=== PATIENT | female | born 1950 | race Caucasian/White ===

== ENCOUNTER 2019-02-05 21:08 | Emergency (ER) | payer MEDICARE ==
[2019-02-05 22:07] LABS: ABS Basophils 0.1 10^3/ul (0-0.2); ABS Eosinophils 0.3 10^3/ul (0-0.6); ABS Lymphocytes 0.9 10^3/ul (1.0-4.8); ABS Monocytes 0.5 10^3/ul (0-0.8); ABS Neutrophils 6.1 10^3/ul (1.5-7.7); Eosinophil % 3.7 %; Hematocrit 44 % (35-47); Hemoglobin 14.3 g/dL (12.0-16.0); Mean Corpuscular HGB Conc 33 g/dL (31-36); Mean Corpuscular Hemoglobin 29 pg (27-31); Mean Corpuscular Volume 89 fL (80-97); Mean Platelet Volume 6.8 fL (7.4-10.4); Nucleated Red Blood Cells % 0.1; Platelet Count 252 10^3/uL (150-450); Red Blood Count 4.91 10^6 /uL (3.70-4.87); Red Cell Distribution Width 15 % (10.5-15); White Blood Count 7.8 10^3/uL (3.5-10.8)
[2019-02-05 22:24] LABS: Albumin 3.9 g/dL (3.2-5.2); Albumin/Globulin Ratio 1.2 (1-3); BUN/Creatinine Ratio 21.8 (8-20); C Reactive Protein 9.4 mg/L (<8.01); Calcium 9.1 mg/dL (8.6-10.3); EGFR African American 59.4 (>60); EGFR Non-African American 49.1 (>60); Globulin 3.2 g/dL (2-4); Potassium 4.5 mmol/L (3.5-5.0); Total Bilirubin 0.5 mg/dL (0.2-1.0); Total Protein 7.1 g/dL (6.4-8.9)
[2019-02-05 23:24] VITALS: BP 142/84
--- NOTE | 2019-02-05 23:51 | ED ---
Abdominal Pain/Female - HPI Summary HPI Summary: This patient is a 68 year old female presenting to [facility] with a chief complaint of abdominal pain since 10 hours ago. She states she then started experiencing diarrhea and after a while she noticed a small amount of blood in the toilet after her diarrhea had resolved. The patient reports nausea, vomiting, and chills. She describes the pain as a cramping pain and rates it 7/10 in severity. - History of Current Complaint Chief Complaint: EDAbdPain Stated Complaint: DIARRHEA/BLOOD IN STOOL PER PT Time Seen by Provider: 02/05/19 23:48 Hx Obtained From: Patient Pain Intensity: 6 Pain Scale Used: 0-10 Numeric Allergies/Adverse Reactions: Allergies Allergy/AdvReac Type Severity Reaction Status Date / Time neomycin Allergy Unknown Verified 02/05/19 21:21 Reaction Details Penicillins Allergy Unknown Verified 02/05/19 21:21 Reaction Details Sulfa (Sulfonamide Allergy Unknown Verified 02/05/19 21:20 Antibiotics) Reaction Details diovan Allergy Unknown Uncoded 02/05/19 21:21 Reaction Details Home Medications: Home Medications Levothyroxine TAB* [Synthroid TAB*] 150 mcg PO DAILY 02/06/19 [History Confirmed 02/06/19] Sertraline* [Zoloft*] 50 mg PO BEDTIME 02/06/19 [History Confirmed 02/06/19] PMH/Surg Hx/FS Hx/Imm Hx Endocrine/Hematology History: Denies: Hx Anemia Cardiovascular History: Denies: Hx Coronary Artery Disease - Cancer History Hx Chemotherapy: No Hx Radiation Therapy: No Infectious Disease History: No Infectious Disease History: Denies: Traveled Outside the [place] in Last 30 Days - Family History Known Family History: Negative: Hypertension Review of Systems Positive: Chills Positive: Abdominal Pain, Vomiting, Diarrhea, Nausea Positive: other - Hematochezia All Other Systems Reviewed And Are Negative: Yes Physical Exam - Summary Physical Exam Summary: Appearance: Morbidly obese, lying in bed comfortably Skin: Warm, dry, no obvious rash Eyes: sclera anicteric, no conjunctival pallor ENT: mucous membranes moist, pharynx appears normal Neck: Supple, nontender Respiratory: Clear to auscultation, no signs of respiratory distress Cardiovascular: Normal S1, S2. No murmurs. Normal distal pulses in tibial and radial bilaterally. Abdomen: Soft, nontender, normal active bowel sounds present Musculoskeletal: Normal, Strength/ROM Intact Neurological: A&Ox3, awake and alert, mentation is normal, speech is fluent and appropriate Psychiatric: affect is normal, does not appear anxious or depressed Rectal: No gross blood on the examining finger. No external signs of bleeding. No hemorrhoids. Triage Information Reviewed: Yes Vital Signs On Initial Exam: Initial Vitals Temp Pulse Resp BP Pulse Ox 98.4 F 80 20 0/0 98 02/05/19 21:10 02/05/19 21:10 02/05/19 21:10 02/05/19 21:10 02/05/19 21:10 Vital Signs Reviewed: Yes Diagnostics - Vital Signs Vital Signs Temp Pulse Resp BP Pulse Ox 02/05/19 23:18 99.2 F 72 16 142/84 98 02/05/19 21:10 98.4 F 80 20 0/0 98 - Laboratory Lab Results: Lab Results 02/05/19 02/05/19 02/05/19 Range/Units 22:01 22:01 22:01 WBC 7.8 (3.5-10.8) 10^3/uL RBC 4.91 H (3.70-4.87) 10^6 /uL Hgb 14.3 (12.0-16.0) g/dL Hct 44 (35-47) % MCV 89 (80-97) fL MCH 29 (27-31) pg MCHC 33 (31-36) g/dL RDW 15 (10.5-15) % Plt Count 252 (150-450) 10^3/uL MPV 6.8 L (7.4-10.4) fL Neut % (Auto) 77.9 % Lymph % (Auto) 11.0 % [place] % (Auto) 6.6 % Eos % (Auto) 3.7 % Baso % (Auto) 0.8 % Absolute Neuts (auto) 6.1 (1.5-7.7) 10^3/ul Absolute Lymphs (auto) 0.9 L (1.0-4.8) 10^3/ul Absolute Monos (auto) 0.5 (0-0.8) 10^3/ul Absolute Eos (auto) 0.3 (0-0.6) 10^3/ul Absolute Basos (auto) 0.1 (0-0.2) 10^3/ul Absolute Nucleated RBC 0.0 10^3/ul Nucleated RBC % 0.1 Sodium 141 (135-145) mmol/L Potassium 4.5 (3.5-5.0) mmol/L Chloride 106 (101-111) mmol/L Carbon Dioxide 29 (22-32) mmol/L Anion Gap 6 (2-11) mmol/L BUN 24 (6-24) mg/dL Creatinine 1.10 H (0.51-0.95) mg/dL Est GFR ( Amer) 59.4 (>60) Est GFR (Non-Af Amer) 49.1 (>60) BUN/Creatinine Ratio 21.8 H (8-20) Glucose 119 H (70-100) mg/dL Lactic Acid 1.4 (0.5-2.0) mmol/L Calcium 9.1 (8.6-10.3) mg/dL Total Bilirubin 0.50 (0.2-1.0) mg/dL AST 17 (13-39) U/L ALT 14 (7-52) U/L Alkaline Phosphatase 76 (34-104) U/L C-Reactive Protein 9.40 H (<8.01) mg/L Total Protein 7.1 (6.4-8.9) g/dL Albumin 3.9 (3.2-5.2) g/dL Globulin 3.2 (2-4) g/dL Albumin/Globulin Ratio 1.2 (1-3) Lipase 14 (11.0-82.0) U/L Result Diagrams: 02/05/19 22:01 02/05/19 22:01 Lab Statement: Any lab studies that have been ordered have been reviewed, and results considered in the medical decision making process. - EKG 0014 Summary of EKG Findings: NSR at 71 BPM, P waves, QRS complex, and T waves are within normal limits, T waves and intervals are normal, no ischemic changes. This is a normal EKG. Abdominal Pain Fem Course/Dx - Course Course Of Treatment: This is a generally healthy 68-year-old woman with acute onset of crampy abdominal pain, initially clear diarrhea, and some nausea and a little bit of vomiting. After several episodes of diarrhea which had initially been clear, the patient noticed a small amount, perhaps a tablespoon, of blood occurring after several of the bouts of diarrhea. However she has not had dramatic amounts of blood as one would expect to see for a true colitis. She also has not had fever, and has no abdominal tenderness suggestive of colitis. Laboratory studies are reassuringly unremarkable. Initially I planned to order a CT scan of her abdomen, but after getting further history and examining her, I do not feel this is necessary at the moment. She will be treated with some oral Zofran and see how she does with fluids. Once improved, the patient will be discharged. This plan was discussed with the patient and she was agreeable with this plan. - Diagnoses Provider Diagnoses: Gastroenteritis Discharge - Sign-Out/Discharge Documenting (check all that apply): Patient Departure - Discharge Patient Received Moderate/Deep Sedation with Procedure: No - Discharge Plan Condition: Good Disposition: HOME Prescriptions: Ondansetron ODT TAB* [Zofran 4 MG Odt TAB*] 8 mg PO Q6H PRN #12 tab.odt PRN Reason: Nausea Patient Education Materials: Gastroenteritis (ED) Referrals: Ami Ma MD [Primary Care Provider] - Additional Instructions: I would expect you to be feeling better over the next few days, and certainly by the weekend. Red flags that this could be developing into something more worrisome would be high fevers, intractable vomiting, persistent severe pain, and a marked increase in the blood you are seeing. - Billing Disposition and Condition Condition: GOOD Disposition: Home - Attestation Statements Document Initiated by Abdullahi: Yes Documenting Scribe: Theodore Molina Provider For Whom Abdullahi is Documenting (Include Credential): Cole Cohen MD Scribe Attestation: ITheodore, scribed for Cole Cohen MD on 02/06/19 at 0506. Scribe Documentation Reviewed: Yes Provider Attestation: The documentation as recorded by the Theodore prado accurately reflects the service I personally performed and the decisions made by me, Cole Choen MD Status of [place] Document: Viewed
[2019-02-06] MEDS ORDERED: Ondansetron ODT TAB* 4 MG SL ONE (00:02)
== END 2019-02-06 00:14 | disposition home or self-care (01) ==
LOC: ED 21:08
DX: K52.9 Noninfective gastroenteritis and colitis, unspecified (principal); R10.9 Unspecified abdominal pain; Z88.2 Allergy status to sulfonamides; Z88.0 Allergy status to penicillin; R11.2 Nausea with vomiting, unspecified
CPT/HCPCS: 36415; 80053; 82270; 83605; 83690; 85025; 86140; 93005; 99283; A9270-GY